=== PATIENT | female | born 1990 | race Caucasian/White ===

== ENCOUNTER 2021-05-22 22:52 | Emergency (ER) | payer OTHER ==
[~2021-05-22] VITALS: Ht 170.2 cm; Wt 90.7 kg
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
--- NOTE | 2021-05-22 23:07 | NUR ---
DR. JETT AT BEDSIDE, MSE IN PROGRESS.
[2021-05-22] MEDS ORDERED: OXYCODONE/APAP 5-325 MG TABLET ONE (23:25)
[2021-05-22] MEDS ORDERED: SULFAMETH/TRIMETH 800/160 MG TABLET ONE (23:25)
[2021-05-22] MEDS ORDERED: OXYC-128 PO (23:29)
[2021-05-22] MEDS ORDERED: SULF1TAB48 PO (23:29)
[2021-05-22] MEDS ORDERED: SULFAMETH/TRIMETH 800/160 MG TABLET PO ONE (23:30)
[2021-05-22] MEDS ORDERED: OXYCODONE/APAP 5-325 MG TABLET PO ONE (23:30)
[2021-05-22 23:39] VITALS: BP 110/76
--- NOTE | 2021-05-22 23:39 | NUR ---
Patient discharged to home in stable condition. Written and verbal after care instructions given. Patient verbalizes understanding of instructions. Stressed follow up or return to ER for worsening s/s. Steady gait, accompanied by significant other.
== END 2021-05-22 23:40 | disposition home or self-care (01) ==
LOC: ER 22:55
DX: L03.211 Cellulitis of face (principal); L02.01 Cutaneous abscess of face; Z91.040 Latex allergy status; Z91.018 Allergy to other foods; J45.909 Unspecified asthma, uncomplicated
CPT/HCPCS: 87070; 87077; A4663